=== PATIENT | male | born 1945 | race Caucasian/White ===

== ENCOUNTER 2021-07-07 21:51 | Outpatient (CLI) | payer MEDICARE, OTHER | END 2021-07-07 21:52 | disposition short-term general hospital (02) | LOC: EMS 21:51 | DX: R50.9 Fever, unspecified (principal); R53.1 Weakness; R53.83 Other fatigue | CPT/HCPCS: A0425; A0429 ==

== ENCOUNTER 2023-10-06 11:43 | Outpatient (CLI) | payer MEDICARE, OTHER | END 2023-10-06 23:59 | disposition short-term general hospital (02) | LOC: EMS 11:43 | PROVIDERS: ATTEND Emergency Medicine | DX: R41.0 Disorientation, unspecified (principal); R41.89 Other symptoms and signs involving cognitive functions and awareness | CPT/HCPCS: A0425; A0429 ==